=== PATIENT | male | born 1965 | race Asian ===

== ENCOUNTER 2020-04-11 21:02 | Inpatient (IN) | payer BC, SELFPAY ==
[~2020-04-11] VITALS: Ht 177.8 cm; Wt 83.9 kg
[2020-04-11 21:04] VITALS: Ht 177.8 cm; Wt 83.9 kg
[2020-04-11 21:59] LABS: BASOPHIL % 0.4 % (0.2-1.5); PLATELET COUNT 167 x10^3mcL (152-348); RED CELL DISTRIBUTION WIDTH 12.4 % (12.1-16.2)
[2020-04-11 22:07] LABS: CALCIUM 8.9 mg/dL (8.5-10.1); CARBON DIOXIDE 27.9 mmol/L (21-32); CHLORIDE SERUM 99 mmol/L (98-107); CREATININE SERUM 1.2 mg/dL (0.7-1.3); GFR1 > 60 mL/min; GLUCOSE SERUM 126 mg/dL (74-106); POTASSIUM SERUM 3.5 mmol/L (3.5-5.1); SODIUM SERUM 134 mmol/L (136-145)
[2020-04-11 22:12] LABS: ALKALINE PHOSPHATASE 66 U/L (46-116); ALT/SGPT 98 U/L (16-63); AST/SGOT 111 U/L (15-37); C REACTIVE PROTEIN 7.4 mg/dL (<=0.9); LACTIC DEHYDROGENASE (LDH) 523 U/L (100-190); TOTAL PROTEIN, SERUM 7.2 g/dL (6.4-8.2)
[2020-04-11 22:13] LABS: ALBUMIN 3.1 g/dL (3.4-5.0)
[2020-04-12 04:13] VITALS: BP 109/69
[2020-04-12 05:12] VITALS: BP 123/76
[2020-04-12 08:38] LABS: BASOPHIL % 0.3 % (0.2-1.5); PLATELET COUNT 172 x10^3mcL (152-348); RED CELL DISTRIBUTION WIDTH 12.6 % (12.1-16.2)
[2020-04-12 09:20] VITALS: BP 104/44
[2020-04-12 09:53] LABS: CALCIUM 8.9 mg/dL (8.5-10.1); CARBON DIOXIDE 28.1 mmol/L (21-32); CHLORIDE SERUM 99 mmol/L (98-107); CREATININE SERUM 1.3 mg/dL (0.7-1.3); GFR1 > 60 mL/min; GLUCOSE SERUM 88 mg/dL (74-106); MAGNESIUM 2.6 mg/dL (1.8-2.4); PHOSPHOROUS 4.2 mg/dL (2.5-4.9); SODIUM SERUM 136 mmol/L (136-145)
[2020-04-12 11:55] LABS: UA SPECIFIC GRAVITY >=1.030 (1.005-1.035); microscopic required? YES; urine erythrocyte NEGATIVE (NEGATIVE)
[2020-04-12 13:06] LABS: AMPHETAMINE QUAL UR NONE DETECTED (See below)
[2020-04-12 13:27] VITALS: BP 117/70
[2020-04-12 16:43] VITALS: BP 124/77
[2020-04-12 21:48] VITALS: BP 123/78
[2020-04-13 05:33] VITALS: BP 106/67
[2020-04-13 07:21] LABS: BASOPHIL % 0.1 % (0.2-1.5); PLATELET COUNT 212 x10^3mcL (152-348); RED CELL DISTRIBUTION WIDTH 12.6 % (12.1-16.2)
[2020-04-13 07:32] LABS: ALKALINE PHOSPHATASE 77 U/L (46-116); ALT/SGPT 132 U/L (16-63); AST/SGOT 144 U/L (15-37); BILIRUBIN DIRECT 0.23 mg/dL (0.0-0.2); BILIRUBIN TOTAL 0.6 mg/dL (0.20-1.00); CALCIUM 8.5 mg/dL (8.5-10.1); CHLORIDE SERUM 102 mmol/L (98-107); CREATININE SERUM 1.1 mg/dL (0.7-1.3); GFR1 > 60 mL/min; GLUCOSE SERUM 113 mg/dL (74-106); POTASSIUM SERUM 3.9 mmol/L (3.5-5.1); SODIUM SERUM 139 mmol/L (136-145); TOTAL PROTEIN, SERUM 6.5 g/dL (6.4-8.2)
[2020-04-13 08:09] LABS: ALBUMIN 2.7 g/dL (3.4-5.0)
[2020-04-13 08:17] VITALS: BP 115/76
[2020-04-13 12:08] VITALS: BP 120/73
[2020-04-13 16:19] VITALS: BP 119/61
[2020-04-13 20:49] VITALS: BP 111/69
[2020-04-14 05:42] VITALS: BP 105/66
[2020-04-14 07:41] LABS: PLATELET COUNT 269 x10^3mcL (152-348); RED CELL DISTRIBUTION WIDTH 12.5 % (12.1-16.2)
[2020-04-14 07:48] LABS: C REACTIVE PROTEIN 2.9 mg/dL (<=0.9); CALCIUM 9.2 mg/dL (8.5-10.1); CARBON DIOXIDE 28.1 mmol/L (21-32); CHLORIDE SERUM 102 mmol/L (98-107); GFR1 > 60 mL/min; GLUCOSE SERUM 125 mg/dL (74-106); POTASSIUM SERUM 4.7 mmol/L (3.5-5.1); SODIUM SERUM 139 mmol/L (136-145)
[2020-04-14 08:06] VITALS: BP 105/60
[2020-04-14 08:12] LABS: BILIRUBIN DIRECT 0.24 mg/dL (0.0-0.2); BILIRUBIN TOTAL 0.5 mg/dL (0.20-1.00); TOTAL PROTEIN, SERUM 6.6 g/dL (6.4-8.2)
[2020-04-14 08:14] LABS: ALBUMIN 2.8 g/dL (3.4-5.0)
[2020-04-14 11:37] VITALS: BP 110/67
[2020-04-14 13:46] LABS: ATYPICAL LYMPH 1 %; BAND NEUTROPHIL 7 % (0-10); BASOPHIL 0 % (0-2); MONOCYTE 22 % (0-7); SEGMENTED NEUTROPHILS 54 % (37-75)
[2020-04-14 13:47] LABS: rbc morphology (normal/abnorm) NORMAL (NORMAL)
[2020-04-14 16:08] VITALS: BP 127/85
[2020-04-14 21:34] VITALS: BP 125/79
[2020-04-15 05:51] VITALS: BP 128/80
[2020-04-15 08:12] VITALS: BP 120/79
[2020-04-15 08:26] LABS: C REACTIVE PROTEIN 1.6 mg/dL (<=0.9); CALCIUM 8.9 mg/dL (8.5-10.1); CARBON DIOXIDE 25.5 mmol/L (21-32); CHLORIDE SERUM 100 mmol/L (98-107); CREATININE SERUM 0.8 mg/dL (0.7-1.3); GFR1 > 60 mL/min; GLUCOSE SERUM 106 mg/dL (74-106); POTASSIUM SERUM 4.1 mmol/L (3.5-5.1); SODIUM SERUM 135 mmol/L (136-145)
[2020-04-15 08:41] LABS: BILIRUBIN DIRECT 0.25 mg/dL (0.0-0.2); BILIRUBIN TOTAL 0.6 mg/dL (0.20-1.00); TOTAL PROTEIN, SERUM 6.2 g/dL (6.4-8.2)
[2020-04-15 08:43] LABS: ALBUMIN 2.7 g/dL (3.4-5.0)
[2020-04-15 08:45] LABS: BASOPHIL % 0.1 % (0.2-1.5); PLATELET COUNT 301 x10^3mcL (152-348); RED CELL DISTRIBUTION WIDTH 12.7 % (12.1-16.2)
[2020-04-15 11:55] VITALS: BP 122/79
[2020-04-15 16:08] VITALS: BP 126/81
[2020-04-16 04:26] VITALS: BP 125/84
[2020-04-16 08:30] VITALS: BP 110/71
[2020-04-16 08:44] LABS: BASOPHIL % 0.1 % (0.2-1.5); PLATELET COUNT 330 x10^3mcL (152-348); RED CELL DISTRIBUTION WIDTH 12.7 % (12.1-16.2)
[2020-04-16 09:09] LABS: CALCIUM 8.4 mg/dL (8.5-10.1); CARBON DIOXIDE 26.6 mmol/L (21-32); CHLORIDE SERUM 99 mmol/L (98-107); GFR1 > 60 mL/min; GLUCOSE SERUM 97 mg/dL (74-106); POTASSIUM SERUM 3.9 mmol/L (3.5-5.1); SODIUM SERUM 137 mmol/L (136-145)
[2020-04-16 09:42] LABS: BILIRUBIN DIRECT 0.3 mg/dL (0.0-0.2); BILIRUBIN TOTAL 0.7 mg/dL (0.20-1.00); TOTAL PROTEIN, SERUM 6.4 g/dL (6.4-8.2)
[2020-04-16 09:54] LABS: ALBUMIN 2.7 g/dL (3.4-5.0)
[2020-04-16 13:36] VITALS: BP 117/64
[2020-04-16 18:14] VITALS: BP 117/78
[2020-04-16 21:35] VITALS: BP 131/78
[2020-04-17 06:41] VITALS: BP 126/88
[2020-04-17 09:37] LABS: BASOPHIL % 0.1 % (0.2-1.5); PLATELET COUNT 376 x10^3mcL (152-348); RED CELL DISTRIBUTION WIDTH 12.4 % (12.1-16.2)
[2020-04-17 09:46] VITALS: BP 121/85
[2020-04-17 10:01] LABS: CALCIUM 8.7 mg/dL (8.5-10.1); CARBON DIOXIDE 23.9 mmol/L (21-32); CHLORIDE SERUM 98 mmol/L (98-107); CREATININE SERUM 0.9 mg/dL (0.7-1.3); GFR1 > 60 mL/min; GLUCOSE SERUM 98 mg/dL (74-106); SODIUM SERUM 134 mmol/L (136-145)
[2020-04-17 12:10] VITALS: BP 152/81
[2020-04-17 20:49] VITALS: BP 132/88
[2020-04-18 05:34] VITALS: BP 110/72
[2020-04-18 07:47] LABS: BASOPHIL % 0.1 % (0.2-1.5); RED CELL DISTRIBUTION WIDTH 12.2 % (12.1-16.2)
[2020-04-18 07:52] LABS: ALKALINE PHOSPHATASE 74 U/L (46-116); ALT/SGPT 129 U/L (16-63); AST/SGOT 36 U/L (15-37); BILIRUBIN DIRECT 0.33 mg/dL (0.0-0.2); BILIRUBIN TOTAL 0.69 mg/dL (0.20-1.00); CHLORIDE SERUM 98 mmol/L (98-107); CREATININE SERUM 0.9 mg/dL (0.7-1.3); GFR1 > 60 mL/min; GLUCOSE SERUM 164 mg/dL (74-106); POTASSIUM SERUM 3.8 mmol/L (3.5-5.1); SODIUM SERUM 133 mmol/L (136-145); TOTAL PROTEIN, SERUM 6.6 g/dL (6.4-8.2)
[2020-04-18 07:57] LABS: ALBUMIN 2.5 g/dL (3.4-5.0)
[2020-04-18 08:47] VITALS: BP 122/70
[2020-04-18 10:17] LABS: PLATELET COUNT 432 x10^3mcL (152-348)
[2020-04-18 12:46] VITALS: BP 114/68
[2020-04-18 17:13] VITALS: BP 123/80
[2020-04-18 21:13] VITALS: BP 117/76
[2020-04-19 05:21] VITALS: BP 124/72
[2020-04-19 07:40] LABS: RED CELL DISTRIBUTION WIDTH 12.5 % (12.1-16.2)
[2020-04-19 08:14] LABS: CARBON DIOXIDE 24.2 mmol/L (21-32); CHLORIDE SERUM 97 mmol/L (98-107); CREATININE SERUM 0.8 mg/dL (0.7-1.3); GFR1 > 60 mL/min; GLUCOSE SERUM 98 mg/dL (74-106); POTASSIUM SERUM 4.1 mmol/L (3.5-5.1); SODIUM SERUM 131 mmol/L (136-145)
[2020-04-19 08:43] LABS: BASOPHIL % 0 % (0.2-1.5); PLATELET COUNT 489 x10^3mcL (152-348)
[2020-04-19 08:47] VITALS: BP 127/88
[2020-04-19 12:09] VITALS: BP 130/84
[2020-04-19 16:24] VITALS: BP 122/76
[2020-04-19 20:55] VITALS: BP 124/78
[2020-04-20 05:56] VITALS: BP 120/78
[2020-04-20 07:50] LABS: BASOPHIL % 0.1 % (0.2-1.5); RED CELL DISTRIBUTION WIDTH 12.4 % (12.1-16.2)
[2020-04-20 07:54] LABS: PLATELET COUNT 490 x10^3mcL (152-348)
[2020-04-20 08:20] LABS: CALCIUM 8.2 mg/dL (8.5-10.1); CARBON DIOXIDE 23.7 mmol/L (21-32); CHLORIDE SERUM 99 mmol/L (98-107); GFR1 > 60 mL/min; GLUCOSE SERUM 123 mg/dL (74-106); POTASSIUM SERUM 3.9 mmol/L (3.5-5.1); SODIUM SERUM 133 mmol/L (136-145)
[2020-04-20 09:06] VITALS: BP 116/76
[2020-04-20 12:23] VITALS: BP 118/82
[2020-04-20 16:39] VITALS: BP 112/79
[2020-04-20 21:46] VITALS: BP 117/83
[2020-04-21 05:25] VITALS: BP 115/72
[2020-04-21 07:33] LABS: BASOPHIL % 0.3 % (0.2-1.5); RED CELL DISTRIBUTION WIDTH 12.6 % (12.1-16.2)
[2020-04-21 08:06] LABS: CALCIUM 8.6 mg/dL (8.5-10.1); CARBON DIOXIDE 28.4 mmol/L (21-32); CHLORIDE SERUM 99 mmol/L (98-107); GFR1 > 60 mL/min; GLUCOSE SERUM 97 mg/dL (74-106); POTASSIUM SERUM 4.4 mmol/L (3.5-5.1); SODIUM SERUM 134 mmol/L (136-145)
[2020-04-21 09:02] VITALS: BP 125/83
[2020-04-21 11:24] LABS: PLATELET COUNT 503 x10^3mcL (152-348)
[2020-04-21 12:52] VITALS: BP 110/77
[2020-04-21 16:38] VITALS: BP 116/80
[2020-04-21 20:55] VITALS: BP 111/76
[2020-04-22 05:51] VITALS: BP 117/74
[2020-04-22 07:54] LABS: BASOPHIL % 0.2 % (0.2-1.5); RED CELL DISTRIBUTION WIDTH 12.9 % (12.1-16.2)
[2020-04-22 08:31] LABS: CALCIUM 8.7 mg/dL (8.5-10.1); CARBON DIOXIDE 26.9 mmol/L (21-32); CHLORIDE SERUM 100 mmol/L (98-107); CREATININE SERUM 1.1 mg/dL (0.7-1.3); GFR1 > 60 mL/min; GLUCOSE SERUM 114 mg/dL (74-106); SODIUM SERUM 136 mmol/L (136-145)
[2020-04-22 08:40] LABS: PLATELET COUNT 470 x10^3mcL (152-348)
[2020-04-22 08:52] VITALS: BP 109/72
[2020-04-22 12:25] VITALS: BP 106/74
[2020-04-22 17:15] VITALS: BP 118/82
[2020-04-22 21:55] VITALS: BP 119/78
[2020-04-23 05:50] VITALS: BP 109/71
[2020-04-23 07:34] VITALS: BP 130/78
[2020-04-23 09:22] VITALS: BP 125/82
[2020-04-23 11:58] VITALS: BP 98/71
[2020-04-23 17:36] VITALS: BP 128/84
[2020-04-24 05:34] VITALS: BP 118/69
[2020-04-24 06:22] VITALS: BP 127/83
[2020-04-24 08:14] LABS: CALCIUM 8.4 mg/dL (8.5-10.1); CARBON DIOXIDE 32.4 mmol/L (21-32); CHLORIDE SERUM 102 mmol/L (98-107); GFR1 > 60 mL/min; GLUCOSE SERUM 81 mg/dL (74-106); POTASSIUM SERUM 4.2 mmol/L (3.5-5.1); SODIUM SERUM 138 mmol/L (136-145)
[2020-04-24] MEDS ORDERED: VENTOLIN H0.09 MG/A1 INH (08:52)
[2020-04-24] MEDS ORDERED: VITC PO (08:53)
[2020-04-24] MEDS ORDERED: TES100 PO (08:53)
[2020-04-24] MEDS ORDERED: D-10001 TAB PO (08:53)
[2020-04-24] MEDS ORDERED: MELATONIN1 MG PO (08:54)
[2020-04-24] MEDS ORDERED: ELIQUIS2.5 MG PO (08:55)
[2020-04-24] MEDS ORDERED: DECADRON6 MG PO (08:56)
[2020-04-24 09:00] VITALS: BP 124/72
[2020-04-24 10:16] LABS: BASOPHIL % 0.4 % (0.2-1.5); RED CELL DISTRIBUTION WIDTH 12.8 % (12.1-16.2)
[2020-04-24 10:34] LABS: PLATELET COUNT 444 x10^3mcL (152-348)
[2020-04-24 14:00] VITALS: BP 107/71
[2020-04-24 21:11] VITALS: BP 106/70
[2020-04-25 05:27] VITALS: BP 115/67
[2020-04-25 08:42] VITALS: BP 113/73
[2020-04-25 11:58] VITALS: BP 115/68
[2020-04-25 14:58] VITALS: BP 115/68
[2020-04-25 16:26] VITALS: BP 110/69
[2020-04-25 21:19] VITALS: BP 113/74
[2020-04-26 05:18] VITALS: BP 112/77
[2020-04-26 08:59] VITALS: BP 117/86
[2020-04-26 12:05] VITALS: BP 123/77
[2020-04-26 16:22] VITALS: BP 114/76
[2020-04-26 21:40] VITALS: BP 107/74
[2020-04-27 06:03] VITALS: BP 104/73
[2020-04-27 08:57] VITALS: BP 144/83
[2020-04-27 11:54] VITALS: BP 127/83
[2020-04-27 12:35] VITALS: BP 127/83
== END 2020-04-27 14:25 | disposition home or self-care (01) | DRG 871 ==
LOC: ED 21:02 → MU 23:46 → DU 23:46 → MU 04-12 07:43 → DU 04-18 14:44 → MU 04-26 06:39
PROVIDERS: Emergency Medicine; Internal Medicine; ADMIT Family Medicine; ATTEND Family Medicine
PROC: XW033E5 Introduction of Remdesivir Anti-infective into Peripheral Vein, Percutaneous Approach, New Technology Group 5 (ICD-10-PCS; 2020-04-13)
PROC: XW13325 Transfusion of Convalescent Plasma (Nonautologous) into Peripheral Vein, Percutaneous Approach, New Technology Group 5 (ICD-10-PCS; principal; 2020-04-25)
DX: A41.89 Other specified sepsis (principal); U07.1 COVID-19; J12.82 Pneumonia due to coronavirus disease 2019; J96.01 Acute respiratory failure with hypoxia; E87.1 Hypo-osmolality and hyponatremia
CPT/HCPCS: 36600; 83880; 85378; 87804; G0378; J1100; J1644; J2543; J7030; J7050